=== PATIENT | female | born 1975 | race African-American/Black ===

== ENCOUNTER 2018-08-04 08:54 | Emergency (ER) | payer MEDICAID ==
[~2018-08-04] VITALS: Ht 165.1 cm; Wt 64.0 kg
[2018-08-04 09:59] LABS: CLARITY URINE CLOUDY (CLEAR); COLOR URINE YELLOW (YELLOW); KETONES URINE NEGATIVE (NEGATIVE); LEUKOCYTE ESTERASE URINE 2+ (NEGATIVE); NITRITE URINE NEGATIVE (NEGATIVE); OCCULT BLOOD URINE NEGATIVE (NEGATIVE); PROTEIN URINE 1+ (NEGATIVE)
[2018-08-04] MEDS ORDERED: METOCLOPRAMIDE HCL 10MG/2ML VIAL IV ONE (10:30)
[2018-08-04] MEDS ORDERED: KETOROLAC 30MG/ML VIAL IV STA (10:30)
[2018-08-04] MEDS ORDERED: SODIUM CHLORIDE 0.9% 1,000 ML IV ONE ×2 (10:30)
[2018-08-04 10:47] LABS: BASOPHILS % 0.5 % (0.0-2.0); EOSINOPHILS % 0.3 % (0.0-5.0); HEMATOCRIT. 47.8 % (36.0-48.0); HEMOGLOBIN. 16.5 g/dL (12.0-16.0); LYMPHOCYTES % 19.1 % (20.0-50.0); MEAN CORPUSCULAR VOLUME 98.6 fL (81.0-99.0); MEAN PLATELET VOLUME 8.8 fl (7.4-10.4); MONOCYTES % 8.1 % (2.0-8.0); PLATELET 203 x1000/uL (130-400); RED BLOOD CELL COUNT 4.85 mill/uL (4.2-5.4); RED CELL DISTRIBUTION WIDTH 13.4 % (11.6-14.6)
[2018-08-04 10:51] LABS: CHLORIDE 101 mEq/L (98-107)
[2018-08-04 10:52] LABS: INR 0.9; PROTHROMBIN TIME 9.6 sec (9.6-11.0)
[2018-08-04 11:04] LABS: HCG SCREEN NEGATIVE
[2018-08-04] MEDS ORDERED: IOHEXOL-350 100 ML BOTTLE ONE (11:26)
[2018-08-04] MEDS ORDERED: CEFTRIAXONE 1 G PREMIX 50 ML IV ONE (11:45)
[2018-08-04 12:09] VITALS: BP 138/88
== END 2018-08-04 12:35 | disposition home or self-care (01) ==
LOC: ER 08:54
DX: R51 Headache (principal); N39.0 Urinary tract infection, site not specified; J45.909 Unspecified asthma, uncomplicated; H53.8 Other visual disturbances
CPT/HCPCS: 36415; 70496; 80053; 81003; 81025; 84703; 85025; 85610; 87086; 96374; 96375; 99284; J0696; J1885; J2765; J7030; Q9967

== ENCOUNTER 2023-08-09 09:55 | Emergency (ER) | payer MEDICAID ==
[~2023-08-09] VITALS: Ht 165.1 cm; Wt 65.0 kg
[2023-08-09 09:57] VITALS: O2SAT 99
[2023-08-09] MEDS: PREDNISONE 20MG TABLET PO STA (12:14)
[2023-08-09] MEDS: IPRATROPIUM BROMIDE (0.02%) 0.5MG/2.5ML NEB HHN STA (12:18)
[2023-08-09] MEDS: ALBUTEROL (0.083%) 2.5MG/3ML NEB HHN STA (12:19)
[2023-08-09] MEDS ORDERED: PSEU120T56 MT (13:37)
[2023-08-09] MEDS ORDERED: 0.9126SP BOTHNSTRLS (13:37)
[2023-08-09] MEDS ORDERED: ALBU18HF2 IH (13:40)
[2023-08-09 13:54] VITALS: BP 126/74; PULSE 84; RESP 18; TEMP 98
== END 2023-08-09 13:56 | disposition home or self-care (01) ==
LOC: ER 10:17
DX: J32.9 Chronic sinusitis, unspecified (principal); J06.9 Acute upper respiratory infection, unspecified; J45.909 Unspecified asthma, uncomplicated
CPT/HCPCS: 71045; 94640; 99283; J7512; Z7610 ×3